=== PATIENT | male | born 1970 | race Caucasian/White ===

== ENCOUNTER 2019-06-21 10:28 | Emergency (ER) | payer BC ==
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
--- NOTE | 2019-06-21 11:46 | XR ---
EXAMINATION TYPE: XR forearm bilateral , 4 VIEWS DATE OF EXAM ORDERED: 06/21/2019 HISTORY: pain. COMPARISON: None. FINDINGS: No acute fracture or dislocation is seen. I suspect there is been a previous right ulnar s tyloid fracture. IMPRESSION: NO ACUTE OSSEOUS LESION.
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
[2019-06-21 12:05] VITALS: BP 138/99; PULSE 77; RESP 18; TEMP 98.2
== END 2019-06-21 12:05 | disposition home or self-care (01) ==
LOC: EC 10:28
DX: S60.222A Contusion of left hand, initial encounter (principal); S60.221A Contusion of right hand, initial encounter; F17.200 Nicotine dependence, unspecified, uncomplicated; Z79.899 Other long term (current) drug therapy; Y04.0XXA Assault by unarmed brawl or fight, initial encounter
CPT/HCPCS: 99283

== ENCOUNTER 2020-01-05 21:32 | Emergency (ER) | payer BC ==
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
--- NOTE | 2020-01-05 22:25 | XR ---
EXAMINATION TYPE: XR shoulder complete RT DATE OF EXAM: 01/05/2020 COMPARISON: NONE HISTORY: Shoulder pain TECHNIQUE: 3 views FINDINGS: I see no fracture nor dislocation. There is minor spurring at the AC joint. There are some degenerative cystic changes in the greater tuberosity of the humerus. IMPRESSION: There are some degenerative changes in the right shoulder joint. No fracture seen.
[2020-01-05] MEDS ORDERED: ORPHENADRINE 30 MG/ML 2 ML VIAL IM STA (22:45)
[2020-01-05] MEDS ORDERED: KETOROLAC 15 MG/ML 1 ML VIAL IM STA (22:45)
[2020-01-05 23:18] VITALS: BP 147/88; PULSE 61; RESP 16; TEMP 98.2
== END 2020-01-05 23:17 | disposition home or self-care (01) ==
LOC: EC 21:32
DX: S46.911A Strain of unspecified muscle, fascia and tendon at shoulder and upper arm level, right arm, initial encounter (principal); Y04.2XXA Assault by strike against or bumped into by another person, initial encounter; F17.200 Nicotine dependence, unspecified, uncomplicated
CPT/HCPCS: 73030; 99283; 96372 ×2; J2360; J1885

== ENCOUNTER → 2020-09-27 | Outpatient (CLI) | payer BC, OTHER ==
[2020-09-27 09:58] VITALS: BP 102/71; PULSE 70; RESP 16; TEMP 97.4
--- NOTE | 2020-09-27 10:12 | P.CONS ---
History of Present Illness - Reason for Consult Consult date: 09/27/20 - Chief Complaint Lower back and left leg pain, neck pain - History of Present Illness This is a 50-year-old gentleman with history of lower back pain for at least 5 years with radiation to the left leg down to the left foot with numbness and tingling which Is occasionally in the left leg. The patient denies any weakness in the lower extremities. She also has some pain in the neck with radiation to the shoulders bilaterally. The patient denies any weight loss however his pain occasionally wakes him up at night. He denies any bowel or bladder dysfunction or any weakness in the lower extremities. His cervical spine MRI showed multilevel spondylosis with disc osteophyte complexes and mild central canal stenosis with no pressure on the spinal cord. He had an MRI on the lumbar spine in 2018 which also showed some facet arthropathy and disc bulging at multiple levels. Review of Systems Constitutional: Denies chills, Denies fever Cardiovascular: Denies chest pain, Denies shortness of breath Respiratory: Denies cough Past Medical History Past Medical History: Asthma, COPD, Hypertension, Osteoarthritis (OA) Additional Past Medical History / Comment(s): migraines, no Rx for BP, kidney stones History of Any Multi-Drug Resistant Organisms: None Reported Past Surgical History: Appendectomy, Cholecystectomy, Orthopedic Surgery Additional Past Surgical History / Comment(s): rt shoulder rotator cuff, growth from neck removed, surgery to remove kidney stone 09/20/20. Past Anesthesia/Blood Transfusion Reactions: No Reported Reaction Past Psychological History: Anxiety, Depression Smoking Status: Current every day smoker Past Alcohol Use History: Occasional Additional Past Alcohol Use History / Comment(s): smokes 1 PPD, has smoked since age 8 Past Drug Use History: Marijuana Additional Drug Use History / Comment(s): daily - Past Family History Father Family Medical History: Cancer Additional Family Medical History / Comment(s): . Medications and Allergies Home Medications Medication Instructions Recorded Confirmed Type Meloxicam [Mobic] 15 mg PO DAILY 09/23/20 09/23/20 History Tamsulosin HCl [Flomax] 0.4 mg PO DAILY 09/23/20 09/23/20 History Allergies Allergy/AdvReac Type Severity Reaction Status Date / Time No Known Allergies Allergy Verified 09/23/20 13:43 Physical Exam Vitals: Vital Signs Temp Pulse Resp BP Pulse Ox 09/27/20 09:55 97.4 F L 70 16 102/71 99 - Constitutional General appearance: average body habitus - EENT Eyes: PERRLA - Integumentary Integumentary: no calor, no cellulitis, no cyanotic, no decreased turgor, no flushed, no jaundiced, no normal, no normal turgor, no pale, no rash, no ulcer - Neurologic Neuro exam of the lower extremities is within normal limits Straight leg raising test negative bilaterally Tristan's test is significantly positive on the left side Mild tenderness in the lumbar paravertebral musculature and around the left sacroiliac joint Normal Range of motion of the cervical spine Neuro exam of the upper extremities showed normal muscle strength bilaterally Positive tenderness in the cervical paravertebral musculature bilaterally Neurologic: CNII-XII intact - Psychiatric Psychiatric: A&O x's 3, appropriate affect, intact judgment & insight Results Results: His cervical spine MRI showed multilevel spondylosis with disc osteophyte co mplexes and mild central canal stenosis with no pressure on the spinal cord. He had an MRI on the lumbar spine in 2018 which also showed some facet arthropathy and disc bulging at multiple levels. Assessment and Plan Plan: This is a 50-year-old gentleman with history of neck and lower back pain. His lower back pain is more intense than his neck pain at this time and radiates down the left leg down to the left foot with numbness and tingling occasionally. The patient had an MRI of the lumbar spine in 2018 I might need a more recent one however will try an epidural steroid injection at the L4 5 level in the interlaminar approach and left paramedian. There is no response to this injection we will plan on repeating the MRI of the lumbar spine. The cervical spine spondylosis that the patient has may benefit from a diagnostic cervical medial branch block in the future. The patient is neurologically intact in the upper and lower extremities. He denies any history of diabetes or taken anticoagulants. He smokes one pack of cigarettes a day and also marijuana occasionally. I thank you for the referral
== END | disposition home or self-care (01) ==
LOC: PNWHC3 09:42
PROVIDERS: ATTEND Anesthesiology
DX: M47.812 Spondylosis without myelopathy or radiculopathy, cervical region (principal); M48.02 Spinal stenosis, cervical region; M54.42 Lumbago with sciatica, left side; J44.9 Chronic obstructive pulmonary disease, unspecified; I10 Essential (primary) hypertension; M19.90 Unspecified osteoarthritis, unspecified site; F17.210 Nicotine dependence, cigarettes, uncomplicated; F12.20 Cannabis dependence, uncomplicated; Z98.890 Other specified postprocedural states; Z79.1 Long term (current) use of non-steroidal anti-inflammatories (NSAID)
CPT/HCPCS: 99211

== ENCOUNTER 2020-10-19 07:47 | Day surgery (SDC) | payer OTHER ==
[2020-10-18 09:32] VITALS: BMI 20.3
[~2020-10-19 07:47] MED LIST: LACTATED RINGERS 1,000 ML IV SCH
[2020-10-19 08:12] VITALS: RESP 16; TEMP 97.8
[2020-10-19] MEDS ORDERED: fentaNYL (PF) 50 MCG/ML 2 ML AMP ONE (08:28)
[2020-10-19] MEDS ORDERED: IOPAMIDOL M200 10 ML VIAL ONE (08:28)
[2020-10-19] MEDS ORDERED: methylPREDNISolone ACETATE 40 MG/ML 1 ML VIAL ONE (08:28)
[2020-10-19] MEDS ORDERED: MIDAZOLAM 2 MG/2 ML VIAL ONE (08:28)
--- NOTE | 2020-10-19 08:39 | P.PCN ---
Date of Procedure: 10/19/20 Procedure(s) Performed: PREOPERATIVE DIAGNOSIS: 1- Lumbar Degenerative Disc Diseases 2-Lumbar radiculopathy POSTOPERATIVE DIAGNOSIS: Same as preop diagnosis. PROCEDURE 1. Lumbar epidural steroid injection under fluoroscopic guidance at the L4-5 level. (Fluoroscopy imaging was available in radiology department) 2. Lumbar epidurogram. ANESTHESIA: Local with 1% lidocaine 3 ml and , moderate sedation with intravenous Versed 2 mg ,and fentanyle 100 Mcg EBL: Minimal PROCEDURE INDICATION: The patient with low back pain and radiculitis symptoms unresponsive to conservative treatment. Fluoroscopy was used to optimize visualization of the needle placement and to maximize safety. PROCEDURE DESCRIPTION / TECHNIQUE: The patient was seen and identified in the preoperative area. Risks, benefits, complications including but not limited to infections ,bleeding ,allergic reaction to the medications ,nerve damage and not complete pain releife , and alternatives were discussed with the patient. The patient agreed to proceed with the procedure and signed the consent. IV was started, and vital signs were stable. Patient was taken to the OR and time out was completed. The patient was placed in the prone position on procedure table and a pillow was placed under the abdomen to reduce lumbar lordosis. The lumbosacral area was prepped and draped in the usual sterile fashion.ere closely monitored during the procedure. Conscious sedation was used during the procedure to decrease patients anxiety. Vital signs was monitered during the entire procedure. Using anterior-posterior fluoroscopy, the L4-5 interlaminar space was identified and the skin over this site was marked and then infiltrated with 1% lidocaine subcutaneously. Subsequently, a 20-gauge Tuohy epidural needle was inserted and advanced toward the epidural space using the ``Loss of resistance technique and guided by AP and lateral fluoroscopy. The correct needle position in the epidural space was verified with the injection of 2 mL of the water soluble contrast dye Isovue 200 contrast and observing an excellent epidurogram with the epidural spread of the dye, after negative aspiration for blood and CSF and in the absence of paresthesias. Again after negative aspiration, a 6 ml mixture containing 80 mg of Depo-medrol , and 2 ml of preservative free Normal Saline, and 2 ml of preservative free lidocaine 1% solution was injected and a washout of epidurogram was seen. Needle was withdrawn intact, skin was cleansed, and bandages were applied. COMPLICATIONS: None DISPOSITION / PLANS: The patient was placed in a supine position and transferred to the recovery area in a stable condition for observation. There was no evidence of lower extremity motor or sensory deficit after the procedure. Patient was discharged from the recovery room after meeting discharge criteria. Home discharge instructions were given to the patient by the staff. The patient was reexamined prior to discharge. The patient will schedule a follow up in the clinic in 2-4 weeks.
--- NOTE | 2020-10-19 08:48 | FL ---
EXAMINATION TYPE: FL guided pain mgmt statistic DATE OF EXAM: 10/19/2020 HISTORY: Fluoroscopy time 1 seconds of fluoroscopy provided. IMPRESSION: 1. Fluoroscopy time.
[2020-10-19] MEDS ORDERED: IV FLUID CONTINUATION 600 ML IV ONE (08:51)
[2020-10-19 09:22] VITALS: BP 124/83; PULSE 57
== END 2020-10-19 09:23 | disposition home or self-care (01) ==
LOC: ORPAIN 07:47
PROVIDERS: ATTEND Specialist
DX: M51.16 Intervertebral disc disorders with radiculopathy, lumbar region (principal)
CPT/HCPCS: 62323; J2250; J1030; J3010; Q9966

== ENCOUNTER 2024-10-11 01:31 | Emergency (ER) | payer BC, OTHER ==
--- NOTE | 2024-10-11 02:16 | ED ---
General Adult HPI - General Chief complaint: Extremity Injury, Upper Stated complaint: dislocated shoulder Source: patient Mode of arrival: ambulatory Limitations: no limitations - History of Present Illness Initial comments: Dictation was produced using [employer] dictation software. please excuse any grammatical, word or spelling errors. Chief Complaint: 54-year-old male with right shoulder pain History of Present Illness: Patient is 54-year-old male has history of total shoulder replacement. States that he fell yesterday after hyperextending his right shoulder. Patient still in a sling recovering from total shoulder surgery. Today he was trying to stand up and using his arm to support his weight when all of a sudden he felt a pop. Complaining of pain to his right s houlder. Denies any numbness ting paresthesias to the distal right extremity The ROS documented in this emergency department record has been reviewed and confirmed by me. Those systems with pertinent positive or negative responses have been documented in the HPI. All other systems are other negative and/or noncontributory. - Related Data Home Medications Medication Instructions Recorded Confirmed Meloxicam [Mobic] 15 mg PO DAILY 09/23/20 10/18/20 Allergies Allergy/AdvReac Type Severity Reaction Status Date / Time No Known Allergies Allergy Verified 10/19/20 08:11 Review of Systems ROS Statement: Those systems with pertinent positive or pertinent negative responses have been documented in the HPI. ROS Other: All systems not noted in ROS Statement are negative. Past Medical History Past Medical History: Asthma, COPD, Hypertension, Osteoarthritis (OA) Additional Past Medical History / Comment(s): migraines, no Rx for BP, kidney stones History of Any Multi-Drug Resistant Organisms: None Reported Past Surgical History: Appendectomy, Cholecystectomy, Orthopedic Surgery Additional Past Surgical History / Comment(s): rt shoulder rotator cuff, growth from neck removed, surgery to remove kidney stone 09/20/20. Past Anesthesia/Blood Transfusion Reactions: No Reported Reaction Past Psychological History: Anxiety, Depression Smoking Status: Current every day smoker Past Alcohol Use History: None Reported Past Drug Use History: Marijuana - Past Family History Father Family Medical History: Cancer Additional Family Medical History / Comment(s): . General Exam - General Exam Comments Initial Comments: General: Well-appearing, nontoxic, no acute distress. Head: Normocephalic, atraumatic Eyes: PERRLA, EOMI ENT: Airway patent Chest: Nonlabored breathing Skin: No visual rash, normal skin tone Neuro: Alert and oriented 3 Musculoskeletal: No gross abnormalities Limitations: no limitations Course Vital Signs 10/11/24 01:35 Temperature 97.9 F Pulse Rate 92 Respiratory 18 Rate Blood Pressure 132/90 O2 Sat by Pulse 99 Oximetry Medical Decision Making - Medical Decision Making Was pt. sent in by a medical professional or institution (, PA, BIOSTATISTICS DIRECTOR, urgent care, hospital, or correction...) When possible be specific @ -No Did you speak to anyone other than the patient for history (EMS, parent, family, police, friend...)? What history was obtained from this source @ -No Did you review nursing and triage notes (agree or disagree)? Why? @ -I reviewed and agree with nursing and triage notes Were old charts reviewed (outside hosp., previous admission, EMS record, old EKG, old radiological studies, urgent care reports/EKG's, correction records)? Report findings @ -No old charts were reviewed Differential Diagnosis (chest pain, altered mental status, abdominal pain women, abdominal pain men, vaginal bleeding, musculoskeletal, weakness, fever, dyspnea, syncope, headache, dizziness, GI bleed, back pain, seizure, CVA, palpatations, mental health)? @ -Shoulder fracture, shoulder dislocation, shoulder strain EKG interpreted by me (3pts min.). @ -None done X-rays interpreted by me (1pt min.). @ -Right shoulder x-ray shows no acute processes CT interpreted by me (1pt min.). @ -None done U/S interpreted by me (1pt. min.). @ -None done What testing was considered but not performed or refused? (CT, X-rays, U/S, labs)? Why? @ -None What meds were considered but not given or refused? Why? @ -None Was smoking cessation discussed for >3mins.? @ -No Were there social determinants of health that impacted care today? How? (Homelessness, low income, unemployed, alcoholism, drug addiction, transportation, low edu. Level, literacy, decrease access to med. care, skilled nursing, rehab)? @ -No Was there de-escalation of care discussed even if they declined (Discuss DNR or withdrawal of care, Hospice)? DNR status @ -No What co-morbidities impacted this encounter? (DM, HTN, Smoking, COPD, CAD, Cancer, CVA, ARF, Chemo, Hep., AIDS, mental health diagnosis, sleep apnea, morbid obesity)? @ -None Was patient admitted / discharged? Hospital course, mention meds given and route, prescriptions, significant lab abnormalities, going to OR and other pertinent info. @ -54-year-old male with right shoulder strain. Vital signs stable. X-ray unremarkable. Patient given analgesics discharged told to follow-up with his shoulder surgeon. Did you discuss the management of the patient with other professionals (professionals i.e. , PA, BIOSTATISTICS DIRECTOR, lab, RT, psych nurse, social services counselor, securities settlement processor, teacher, benefits officer, showcase maker)? Give summary @ -No Was critical care preformed (if so, how long)? @ -No Undiagnosed new problem with uncertain prognosis? @ -No Drug Therapy requiring intensive monitoring for toxicity (Heparin, Nitro, Insulin, Cardizem)? @ -No Were any procedures done? @ -No Diagnosis/symptom? Acute, or Chronic, or Acute on Chronic? Uncomplicated (without systemic symptoms) or Complicated (systemic symptoms)? @ -Shoulder strain Side effects of treatment? @ -No Exacerbation, Progression, or Severe Exacerbation? @ -No Poses a threat to life or bodily function? How? (Chest pain, [place], [place], pneumonia, PE, COPD, DKA, ARF, appy, cholecystitis, CVA, Diverticulitis, Homicidal, Suicidal, threat to staff... and all critical care pts) @ -yes Disposition Clinical Impression: Shoulder strain Disposition: HOME SELF-CARE Condition: Good Instructions (If sedation given, give patient instructions): Shoulder Pain (ED) Is patient prescribed a controlled substance at d/c from ED?: No Referrals: Letha Martin MD [Primary Care Provider] - 1-2 days Time of Disposition: 03:33
[2024-10-11] MEDS: MORPHINE SULFATE 4 MG/ML SYRINGE IM STA (02:59)
--- NOTE | 2024-10-11 03:14 | XR ---
EXAM: XR Right Shoulder Complete, 2 or More Views CLINICAL HISTORY: ITS.REASON XR Reason: shoulder pain TECHNIQUE: Two or more views of the right shoulder. COMPARISON: No relevant prior studies available. FINDINGS: Bones/joints: Right shoulder reverse arthroplasty. No acute fracture. No dislocation. Soft tissues: Unremarkable. IMPRESSION: No acute findings in the right shoulder.
[2024-10-11] MEDS: MORPHINE SULFATE 4 MG/ML SYRINGE IVP PRN (03:37)
[2024-10-11 04:35] VITALS: BP 135/96; PULSE 88; RESP 18; TEMP 97.9
== END 2024-10-11 03:51 | disposition home or self-care (01) ==
LOC: EC 01:31
DX: S43.004A Unspecified dislocation of right shoulder joint, initial encounter (principal); F17.200 Nicotine dependence, unspecified, uncomplicated; W19.XXXA Unspecified fall, initial encounter
CPT/HCPCS: 73030; 99283; 96374; 96372; J2270